=== PATIENT | male | born 1950 | race Caucasian/White ===

== ENCOUNTER 2018-03-03 00:40 | Inpatient (IN) | payer MEDICARE, OTHER ==
[~2018-03-03] VITALS: Ht 185.4 cm; Wt 87.4 kg
[2018-03-03] MEDS ORDERED: SODIUM CHLORIDE 0.9% 1,000 ML IV ONE (01:02)
[2018-03-03] MEDS ORDERED: methylPREDNISolone SOD SUCC 125 MG/2 ML ONE (01:10)
[2018-03-03] MEDS ORDERED: ALBUTEROL/IPRATROPIUM 2.5MG/0.5MG, 3 ML ONE (01:21)
[2018-03-03 01:25] LABS: MICROSCOPIC NOT IND
[2018-03-03 01:27] LABS: CULTURE INDICATED? NO
[2018-03-03] MEDS ORDERED: ALBUTEROL/IPRATROPIUM 2.5MG/0.5MG, 3 ML NPPB ONE (01:30)
[2018-03-03] MEDS ORDERED: methylPREDNISolone SOD SUCC 125 MG/2 ML IVP ONE (01:30)
[2018-03-03] MEDS ORDERED: SODIUM CHLORIDE FLUSH 10ML SYR IVF ONE (01:30)
[2018-03-03 01:36] LABS: MEAN CORPUSCULAR HEMOGLOBIN 30.9 pg (27.5-34.5); MEAN CORPUSCULAR HGB CONC 33.4 g/dL (33.2-36.2); MEAN CORPUSCULAR VOLUME 92.6 fL (81-97); MEAN PLATELET VOLUME 8.8 fL (7.4-10.4); PLATELET COUNT 231 x10^3/uL (130-400); RED CELL DISTRIBUTION WIDTH 14.2 % (9.4-14.8)
[2018-03-03 01:45] LABS: ALANINE AMINOTRANSFERASE 30 U/L (12-78); ALBUMIN 3.6 g/dL (3.4-5.0); ANION GAP 7 mmol/L (5-15); CALCIUM 9.4 mg/dL (8.5-10.1); CHLORIDE 102 mmol/L (98-107); CREATININE 0.82 mg/dL (0.7-1.3)
[2018-03-03 01:50] LABS: ALKALINE PHOSPHATASE 109 U/L (45-117); BILIRUBIN,TOTAL 0.4 mg/dL (0.2-1.0); MD YES; TOTAL PROTEIN 7.5 g/dL (6.4-8.2); TROPONIN I < 0.015 ng/mL (0.000-0.045)
[2018-03-03 01:52] LABS: BASOS% (MANUAL) 1 % (0-1); EOS% (MANUAL) 1 % (1-7); LYMPHS% (MANUAL) 34 % (22-44); MONOS% (MANUAL) 16 % (2-9); REACTIVE LYMPHS % (MANUAL) 1 % (0-0); SEGS% (MANUAL) 47 % (42-75)
[2018-03-03 01:53] LABS: ANISOCYTOSIS 1+
[2018-03-03 01:54] LABS: <PLATELET ESTIMATE> ADEQUATE
[2018-03-03 01:55] LABS: LARGE PLATELETS 1+
[2018-03-03] MEDS ORDERED: POLYETHYLENE GLYCOL 17 GM PACKET PO PRN (03:00)
[2018-03-03] MEDS: NICOTINE 14MG/24 HR PATCH.TD24 TD SCH (04:58)
[2018-03-03] MEDS ORDERED: ALBUTEROL/IPRATROPIUM 2.5MG/0.5MG, 3 ML NPPB PRN (05:00)
[2018-03-03 05:02] VITALS: BP 128/65
[2018-03-03] MEDS ORDERED: ALBUTEROL/IPRATROPIUM 2.5MG/0.5MG, 3 ML NPPB SCH (07:00)
[2018-03-03 08:10] VITALS: BP 136/68
[2018-03-03 14:30] VITALS: BP 148/79
[2018-03-03] MEDS ORDERED: ETODOLAC 200 MG CAPSULE PO PRN (18:00)
[2018-03-03 18:55] VITALS: BP 116/62
[2018-03-03] MEDS: RISPERIDONE 2 MG TABLET PO SCH (21:20)
[2018-03-03] MEDS: LEVETIRACETAM 500 MG TABLET PO SCH (21:20)
[2018-03-03] MEDS: BENZTROPINE 1 MG TABLET PO SCH (21:20)
[2018-03-04 01:13] VITALS: BP 119/66
[2018-03-04] MEDS: NICOTINE 14MG/24 HR PATCH.TD24 TD SCH (03:51)
[2018-03-04 06:45] VITALS: BP 120/62
[2018-03-04] MEDS: PHENYTOIN 100 MG CAPSULE PO SCH (09:25)
[2018-03-04] MEDS: LEVETIRACETAM 500 MG TABLET PO SCH ×2 (09:25→20:32)
[2018-03-04] MEDS: TAMSULOSIN 0.4 MG CAP.ER.24H PO SCH (09:25)
[2018-03-04] MEDS: BENZTROPINE 1 MG TABLET PO SCH ×2 (09:25→20:32)
[2018-03-04] MEDS: CITALOPRAM 10 MG TABLET PO SCH (09:26)
[2018-03-04] MEDS: AMLODIPINE 5 MG TABLET PO SCH (09:26)
[2018-03-04 13:18] LABS: HCT (SEDRATE) 36.6 % (39.2-51.8)
[2018-03-04] MEDS ORDERED: PNEUMOCOCCAL 23 VACCINE IM-VACC ONE (13:30)
[2018-03-04 13:31] LABS: C-REACTIVE PROTEIN, QUANT 0.71 mg/dL (0.02-0.49)
[2018-03-04 13:40] LABS: THYROID STIMULATING HORMONE 0.776 mIU/L (0.358-3.740)
[2018-03-04 14:34] VITALS: BP 112/60
[2018-03-04 19:40] VITALS: BP 100/57
[2018-03-04 20:32] VITALS: BP 129/56
[2018-03-04] MEDS: RISPERIDONE 2 MG TABLET PO SCH (20:32)
[2018-03-05 00:30] VITALS: BP 127/63
[2018-03-05] MEDS: NICOTINE 14MG/24 HR PATCH.TD24 TD SCH (02:21)
[2018-03-05 07:10] VITALS: BP 134/63
[2018-03-05] MEDS: BENZTROPINE 1 MG TABLET PO SCH ×2 (09:09→21:49)
[2018-03-05] MEDS: LEVETIRACETAM 500 MG TABLET PO SCH ×2 (09:09→21:49)
[2018-03-05] MEDS: CITALOPRAM 10 MG TABLET PO SCH (09:09)
[2018-03-05] MEDS: TAMSULOSIN 0.4 MG CAP.ER.24H PO SCH (09:09)
[2018-03-05] MEDS: PHENYTOIN 100 MG CAPSULE PO SCH (09:09)
[2018-03-05] MEDS: AMLODIPINE 5 MG TABLET PO SCH (09:09)
[2018-03-05 12:49] VITALS: BP 123/66
[2018-03-05 21:32] VITALS: BP 119/66
[2018-03-05] MEDS: RISPERIDONE 2 MG TABLET PO SCH (21:49)
[2018-03-06] MEDS: NICOTINE 14MG/24 HR PATCH.TD24 TD SCH ×2 (02:16→22:17)
[2018-03-06 03:02] VITALS: BP 130/67
[2018-03-06 06:38] VITALS: BP 144/71
[2018-03-06] MEDS: PHENYTOIN 100 MG CAPSULE PO SCH (08:02)
[2018-03-06] MEDS: LEVETIRACETAM 500 MG TABLET PO SCH ×2 (08:02→22:16)
[2018-03-06] MEDS: TAMSULOSIN 0.4 MG CAP.ER.24H PO SCH (08:02)
[2018-03-06] MEDS: BENZTROPINE 1 MG TABLET PO SCH ×2 (08:03→22:17)
[2018-03-06] MEDS: CITALOPRAM 10 MG TABLET PO SCH (08:03)
[2018-03-06] MEDS: AMLODIPINE 5 MG TABLET PO SCH (08:03)
[2018-03-06] MEDS: DOCUSATE 100 MG CAPSULE PO PRN ×2 (08:12→22:16)
[2018-03-06 12:00] VITALS: BP 115/63
[2018-03-06 19:19] VITALS: BP 124/70
[2018-03-06] MEDS ORDERED: RISPERIDONE 1 MG TABLET PO SCH (21:00)
[2018-03-07 02:16] VITALS: BP 134/72
[2018-03-07 08:07] VITALS: BP 125/69
[2018-03-07] MEDS: AMLODIPINE 5 MG TABLET PO SCH (08:31)
[2018-03-07] MEDS: CITALOPRAM 10 MG TABLET PO SCH (08:31)
[2018-03-07] MEDS: BENZTROPINE 1 MG TABLET PO SCH (08:31)
[2018-03-07] MEDS: TAMSULOSIN 0.4 MG CAP.ER.24H PO SCH (08:31)
[2018-03-07] MEDS: LEVETIRACETAM 500 MG TABLET PO SCH (08:31)
[2018-03-07] MEDS: PHENYTOIN 100 MG CAPSULE PO SCH (08:31)
[2018-03-07 13:58] VITALS: BP 106/57
[2018-03-07] MEDS ORDERED: LEVE500T53 PO (16:24)
[2018-03-07] MEDS ORDERED: PHEN100C PO (16:24)
[2018-03-07] MEDS ORDERED: BUDE180A INH (16:24)
[2018-03-07] MEDS ORDERED: RISP1TAB45 PO (16:24)
[2018-03-07] MEDS ORDERED: TAMS-11 PO (16:24)
[2018-03-07] MEDS ORDERED: BENZ1TAB61 PO (16:24)
[2018-03-07] MEDS ORDERED: AMLO5TAB2 PO (16:24)
[2018-03-07] MEDS ORDERED: ALBU18HF INH (16:24)
[2018-03-07] MEDS ORDERED: POLY17PO5 PO (16:24)
[2018-03-07] MEDS ORDERED: NICO-486 TD (16:24)
[2018-03-07] MEDS ORDERED: CITA10TA8 PO (16:24)
[2018-03-07] MEDS ORDERED: ETOD200C2 PO (16:24)
[2018-03-07] MEDS ORDERED: BUDESONIDE 0.5 MG/2 ML INHA INH SCH (21:00)
== END 2018-03-08 00:04 | DRG 189 ==
LOC: ED 01:39 → EDIP 03:07 → 4EST 04:03
PROVIDERS: ADMIT Family Medicine; ATTEND Family Medicine
DX: J96.01 Acute respiratory failure with hypoxia (principal); E43 Unspecified severe protein-calorie malnutrition; J44.1 Chronic obstructive pulmonary disease with (acute) exacerbation; S06.0X9A Concussion with loss of consciousness of unspecified duration, initial encounter; E86.0 Dehydration; W18.30XA Fall on same level, unspecified, initial encounter; F17.210 Nicotine dependence, cigarettes, uncomplicated; G40.909 Epilepsy, unspecified, not intractable, without status epilepticus; I10 Essential (primary) hypertension; Y92.000 Kitchen of unspecified non-institutional (private) residence as the place of occurrence of the external cause; Y93.89 Activity, other specified; Y92.040 Kitchen in boarding-house as the place of occurrence of the external cause; Y99.8 Other external cause status; Z68.25 Body mass index [BMI] 25.0-25.9, adult
CPT/HCPCS: 36415; 70450; 71045; 80053; 80185; 81003; 82550; 83880; 84443; 84484; 85025; 85651; 86140; 87040; 90732; 93005; 94640; 96361; 96374; J7620; J2930; J7030; J7512